=== PATIENT | male | born 1950 | race Caucasian/White ===

== ENCOUNTER 2017-10-14 07:39 | Day surgery (SDC) | payer MEDICARE, MEDICAID ==
[2017-10-14] VITALS (7 sets, daily range): BP systolic 85–139; BP diastolic 65–73
[~2017-10-14] VITALS: Ht 177.8 cm; Wt 71.3 kg
[~2017-10-14 07:39] MED LIST: CEPH250C PO; CLIN150C2 PO; CLOP75TA35 PO; LISI-600 PO; METO-539 PO; ONDA4TAB12 PO; RIFA150C27 PO; VANC1VIA21 PO
[2017-10-14] MEDS ORDERED: normal saline 1000ml 1,000 ML IV PRN (08:00)
[2017-10-14] MEDS ORDERED: FLO0.4C PO (08:54)
[2017-10-14] MEDS ORDERED: GABA-532 PO (08:54)
[2017-10-14] MEDS ORDERED: FOLI1TAB34 PO (08:54)
[2017-10-14] MEDS ORDERED: METH500T6 PO (08:54)
[2017-10-14] MEDS ORDERED: SIMV10TA6 PO (08:54)
[2017-10-14] MEDS ORDERED: PHO667C PO (08:54)
[2017-10-14] MEDS ORDERED: FURO80TA87 PO (08:54)
[2017-10-14] MEDS ORDERED: OXYC10TA47 PO (08:54)
[2017-10-14] MEDS ORDERED: LIDOcaine 1%/PF 5ML 10 MG/ML VIAL SQ ONE (09:55)
[2017-10-14] MEDS ORDERED: heparin 1,000 UNITS/NS 500ml 500 ML ICATH ONE (09:55)
[2017-10-14] MEDS ORDERED: fentaNYL/PF 50MCG/1 ML 2ML syringe IV PRN (09:55)
[2017-10-14] MEDS ORDERED: midazolam 2 mg/2 ml injection IV PRN (09:55)
[2017-10-14] MEDS ORDERED: LIDOcaine 1%/PF 5ML 10 MG/ML VIAL ONE (10:14)
[2017-10-14] MEDS ORDERED: iohexol 300mg/ml 100ml inj. ONE (10:14)
[2017-10-14] MEDS ORDERED: midazolam 2 mg/2 ml injection ONE (10:19)
[2017-10-14] MEDS ORDERED: fentaNYL/PF 50MCG/1 ML 2ML syringe ONE (10:19)
[2017-10-14] MEDS ORDERED: heparin 1,000 UNITS/NS 500ml 500 ML ONE (10:20)
== END 2017-10-14 12:30 | disposition home or self-care (01) ==
LOC: SSTAY O 07:39
PROVIDERS: ATTEND Radiology Diagnostic Radiology
DX: T82.858A Stenosis of other vascular prosthetic devices, implants and grafts, initial encounter (principal); Y83.8 Other surgical procedures as the cause of abnormal reaction of the patient, or of later complication, without mention of misadventure at the time of the procedure; Y92.89 Other specified places as the place of occurrence of the external cause; I25.10 Atherosclerotic heart disease of native coronary artery without angina pectoris; E78.5 Hyperlipidemia, unspecified; I12.0 Hypertensive chronic kidney disease with stage 5 chronic kidney disease or end stage renal disease; N18.6 End stage renal disease; M19.90 Unspecified osteoarthritis, unspecified site; G89.4 Chronic pain syndrome; Z86.14 Personal history of Methicillin resistant Staphylococcus aureus infection; Z82.49 Family history of ischemic heart disease and other diseases of the circulatory system; Z88.6 Allergy status to analgesic agent; Z95.5 Presence of coronary angioplasty implant and graft; Z87.891 Personal history of nicotine dependence; Z88.5 Allergy status to narcotic agent; Z79.2 Long term (current) use of antibiotics; Z79.891 Long term (current) use of opiate analgesic; Z99.2 Dependence on renal dialysis; Z79.899 Other long term (current) drug therapy; Z98.890 Other specified postprocedural states
CPT/HCPCS: 36902; 99152; 99153; C1725; C1769; C1894; J1644; J2001; J2250; J3010; J7030; Q9967

== ENCOUNTER 2017-12-05 13:28 | Emergency (ER) | payer MEDICARE, MEDICAID ==
[~2017-12-05] VITALS: Ht 172.7 cm; Wt 75.0 kg
[~2017-12-05 13:28] MED LIST changes: -CEPH250C PO; -CLIN150C2 PO; +FLO0.4C PO; +FOLI1TAB34 PO; +FURO80TA87 PO; +GABA-532 PO; -LISI-600 PO; +METH500T6 PO; -ONDA4TAB12 PO; +OXYC10TA47 PO; +PHO667C PO; -RIFA150C27 PO; +SIMV10TA6 PO; -VANC1VIA21 PO
[2017-12-05 14:31] LABS: ALANINE AMINOTRANSFERASE 10 U/L (12-78); ALBUMIN 2.5 G/DL (3.4-5.0); ALBUMIN/GLOBULIN RATIO 0.5 (1.1-1.5); ALKALINE PHOSPHATASE 142 IU/L (46-116); ANION GAP 12 (8-16); ASPARTATE AMINO TRANSFERASE 17 U/L (10-37); BILIRUBIN,TOTAL 0.6 MG/DL (0.1-1.0); BLOOD UREA NITROGEN 29 MG/DL (7-18); BUN/CREATININE RATIO 7.6 (5.4-32.0); CALCIUM 8.7 MG/DL (8.5-10.1); CHLORIDE 96 MMOL/L (99-107); CREATININE 3.81 MG/DL (0.60-1.10); GLUCOSE 108 MG/DL (70-104); POTASSIUM 4.4 MMOL/L (3.5-5.1); SODIUM 134 MMOL/L (135-145); TOTAL CARBON DIOXIDE 26.3 MMOL/L (24-32); TOTAL PROTEIN 7.3 G/DL (6.4-8.2); eGFR 16 ML/MIN
[2017-12-05 14:45] LABS: BASOPHILS % (AUTO) 0.2 % (0-1); EOSINOPHILS % (AUTO) 0 % (0-6); HEMATOCRIT 26.7 % (42.0-52.0); HEMOGLOBIN 9.2 g/dl (14.0-17.9); LYMPHOCYTES # (AUTO) 0.7 X10'3 (1.1-4.8); LYMPHOCYTES % (AUTO) 5.3 % (21-51); MEAN CORPUSCULAR HEMOGLOBIN 32.1 PG (27.0-31.0); MEAN CORPUSCULAR HGB CONC 34.5 % (33.0-36.5); MEAN CORPUSCULAR VOLUME 93.1 FL (78-98); MEAN PLATELET VOLUME 5.4 FL (7.4-10.4); MONOCYTES # (AUTO) 1.4 X10'3 (0-0.9); MONOCYTES % (AUTO) 10.7 % (2-12); NEUTROPHILS # (AUTO) 10.7 X10'3 (1.8-7.7); NEUTROPHILS % (AUTO) 83.8 % (42-75); PLATELET COUNT 210 X10'3 (140-440); RED BLOOD COUNT 2.87 X10'6 (4.70-6.10); RED CELL DISTRIBUTION WIDTH 15.1 % (11.5-14.5)
[2017-12-05 14:46] LABS: WHITE BLOOD COUNT 12.8 X10'3 (4.5-11.0)
[2017-12-05 15:39] LABS: CLARITY,URINE CLOUDY (Clear); COLOR,URINE YELLOW (Yellow); GLUCOSE, URINE NEGATIVE (Neg); KETONES,URINE NEGATIVE (Neg); LEUKOCYTE ESTERASE ,URINE SMALL (Neg); NITRITES, URINE NEGATIVE (Neg); OCCULT BLOOD,URINE MODERATE (Neg); PH,URINE 6.5 (4.8-8.0); PROTEIN,URINE 100 mg/dl (Neg); UA COLLECTION TYPE VOIDED; UROBILINOGEN,URINE 0.2 E.U/dL (0.2-1.0)
[2017-12-05 15:46] LABS: SQUAMOUS EPITHELIAL CELL,UR FEW /LPF (FEW); WBC,URINE 50-100 /HPF (0-4)
[2017-12-05 15:47] LABS: BACTERIA,URINE 2+ /HPF (Neg); COARSE GRANULAR CAST 0-3 /LPF (NEGATIVE); FINE GRANULAR CAST 0-3 /LPF (NEGATIVE); HYALINE CASTS 0-3 /LPF (NEGATIVE)
[2017-12-05] MEDS ORDERED: CefTRIAXone 2gm/D5W 50ml 50 ML IV ONE (16:20)
[2017-12-05] MEDS ORDERED: SULF1TAB49 PO (16:20)
[2017-12-05 16:34] VITALS: BP 137/68
== END 2017-12-05 17:38 | disposition home or self-care (01) ==
LOC: ER 13:29
DX: I95.9 Hypotension, unspecified (principal); D64.9 Anemia, unspecified; R50.9 Fever, unspecified; N18.6 End stage renal disease; G82.20 Paraplegia, unspecified; I25.10 Atherosclerotic heart disease of native coronary artery without angina pectoris; Z99.2 Dependence on renal dialysis; Z88.5 Allergy status to narcotic agent; Z79.899 Other long term (current) drug therapy
CPT/HCPCS: 36415; 71045; 80053; 81001; 83605; 84145; 84439; 84443; 84484; 85025; 87040; 87088; 93005; 96365; 99285; J0696